=== PATIENT | female | born 1995 | race Caucasian/White ===

== ENCOUNTER 2020-03-02 14:04 | Emergency (ER) | payer OTHER ==
[2020-03-03 10:59] LABS: SARS-CoV-2 MS2 Positive; SARS-CoV-2 N Gene Negative; SARS-CoV-2 S Gene Negative; SARS-CoV-2 orf1ab Negative
== END 2020-03-02 14:41 | disposition home or self-care (01) ==
LOC: ERS 14:04
DX: R51 Headache (principal); R19.7 Diarrhea, unspecified; R53.83 Other fatigue; Z20.828 Contact with and (suspected) exposure to other viral communicable diseases
CPT/HCPCS: 87635; 99283; U0003